=== PATIENT | female | born 1990 | race Caucasian/White ===

== ENCOUNTER 2016-05-11 12:47 | Emergency (ER) | payer MEDICAID ==
[~2016-05-11] VITALS: Ht 170.2 cm; Wt 80.0 kg
[~2016-05-11 12:47] MED LIST: AMOX500T PO; DOXY100T PO; MOBI15TA PO; PRED20 PO; TRAM50 PO; VALT500T PO; ZANT300T PO; ZYRT10CA PO
[2016-05-11 12:48] VITALS: BP 146/93; PULSE 118; RESP 12; TEMP 98.3; O2SAT 99
[2016-05-11 14:30] VITALS: O2SAT 99
[2016-05-11] MEDS ORDERED: methylPREDNISolone SOD SUCC 125 MG/2 ML VIAL IVP ONE (14:30)
[2016-05-11] MEDS ORDERED: diphenhydrAMINE HCL 50 MG/ML VIAL IVP ONE (14:30)
[2016-05-11] MEDS ORDERED: VALT1TAB PO (14:30)
[2016-05-11] MEDS ORDERED: FAMOTIDINE 20 MG/2 ML VIAL IV PUSH ONE (14:30)
[2016-05-11] MEDS ORDERED: SODIUM CHLORIDE 0.9% FLUSH 5 ML FLUSH IVF PRN (14:30)
--- NOTE | 2016-05-11 14:36 | PD ---
HPI Chief Complaint: Allergic/Adverse Reaction Time Seen by Provider: 14:32 Travel History International Travel<30 days: No Contact w/Intl Traveler<30days: No Traveled to known affect area: No History of Present Illness HPI 25-year-old female presents to the emergency department for evaluation of urticaria that started this morning. She reports that on her face, chest, back , neck. Patient states that she has been having intermittent urticaria area over the past 3 months. She was seen last week in the emergency department for the same and was given medications. She states that when she stopped her medications, symptoms restarted. She denies any new history of medications, detergents, lotions, foods. Patient took a Zyrtec at home with no improvement. No swelling of lips, tongue, throat. She does report some scratchiness to her throat. No difficulty breathing. No fevers or chills. No other complaints. Patient denies any chance of . PFSH Past Medical History Cancer: No Cardiovascular Problems: No Diabetes: No Endocrine: No Genitourinary: No Hepatitis: No Hiatal Hernia: No Immune Disorder: No Medical other: Yes Musculoskeletal: No Neurologic: No Reproductive: Yes (endometriosis) Respiratory: No Immunizations Current: No Thyroid Disease: No ?: Not : 3 Para: 2 Miscarriage: 1 Tubal Ligation: Yes (2016) Past Surgical History AICD: No Joint Replacement: No Pacemaker: No Social History Alcohol Use: Yes (on occasion) Tobacco Use: Yes (4-5 cigs a week) Substance Use: No Allergies-Medications (Allergen,Severity, Reaction): Coded Allergies: No Known Allergies (Unverified , 02/08/16) Reported Meds & Prescriptions Reported Meds & Active Scripts Active Zantac (Ranitidine HCl) 150 Mg Tab 150 Mg PO BID 5 Days Prednisone 20 Mg Tab 40 Mg PO DAILY 4 Days Reported Valtrex (Valacyclovir HCl) 1 Gm Tab 1,000 Mg PO DAILY Review of Systems Except as stated in HPI: all other systems reviewed are Neg Physical Exam Narrative GENERAL: Well-developed well-nourished female patient, ambulatory. Afebrile. SKIN: Warm and dry. Patient has urticaria noted to the face, neck, trunk. HEAD: Normocephalic. Atraumatic. ENT: Mucosa pink and moist. No erythema or exudates. No uvular edema. No uvular , palatal, or tonsillar deviation. Airway patent. Nasal turbinates appear normal without nasal blood, purulent drainage or septal hematoma. Bilateral tympanic membranes are clear without erythema or perforation. EYES: No scleral icterus. No injection or drainage. NECK: Supple, trachea midline. No JVD or lymphadenopathy. CARDIOVASCULAR: Regular rate and rhythm without murmurs, gallops, or rubs. RESPIRATORY: Breath sounds equal bilaterally. No accessory muscle use. Lungs sounds are clear to auscultation. GASTROINTESTINAL: Abdomen soft, non-tender, nondistended. MUSCULOSKELETAL: No cyanosis, or edema. BACK: Nontender without obvious deformity. No CVA tenderness. Data Data Last Documented VS Vital Signs Date Time Temp Pulse Resp B/P Pulse Ox O2 Delivery O2 Flow Rate FiO2 05/11/16 14:30 99 Room Air 05/11/16 12:48 98.3 118 12 146/93 Orders Ecg Monitoring (05/11/16 14:29) Iv Access Insert/Monitor (05/11/16 14:29) Oximetry (05/11/16 14:29) Diphenhydramine Inj (Benadryl Inj) (05/11/16 14:30) Methylprednisolone So Succ Inj (Solumedr (05/11/16 14:30) Famotidine Inj (Pepcid Inj) (05/11/16 14:30) Sodium Chloride 0.9% Flush (Ns Flush) (05/11/16 14:30) MDM Medical Decision Making Medical Screen Exam Complete: Yes Emergency Medical Condition: Yes Medical Record Reviewed: Yes Differential Diagnosis Urticaria versus allergic reaction versus anaphylaxis Narrative Course 25-year-old female presents to the emergency department for evaluation of hives since this morning. She has history of the same over the past 3 months. No evidence of anaphylaxis on exam. IV access established. Patient was given Benadryl 50 mg IV, Solu-Medrol 125 mg IV, famotidine 20 mg IV. Upon reevaluation, the patient states she is feeling much better. She states itchiness and throat is completely resolved. Rash is improving. Patient is stable for discharge. She'll be discharged with a prescription for prednisone and Zantac. 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 The patient is agreeable to this plan. She is to return for any acute worsening of symptoms. Diagnosis Primary Impression: Allergic dermatitis Referrals: Primary Care Physician call for appointment Patient Instructions: General Instructions, Urticaria (ED) Additional Instructions: Take prednisone as directed. Start this tomorrow. Take Zantac as directed. Take Benadryl [id number] every 6-8 hours as needed. Follow up with your primary care physician or roofer [employer]. Return to the emergency department for any acute worsening symptoms. Med/Other Pt SpecificInfo: Prescription(s) given Scripts Ranitidine (Zantac)150 Mg [id number] Mg PO BID 5 Days Ref 0 Prov:Edna Palafox 05/11/16 Prednisone 20 Mg Tab40 Mg PO DAILY 4 Days Ref 0 Prov:Edna Palafox 05/11/16 Disposition: 01 DISCHARGE HOME Condition: Stable Edna Palafox May 11, 2016 14:36
[2016-05-11] MEDS ORDERED: ZANT150T2 PO (16:02)
[2016-05-11] MEDS ORDERED: PRED20 PO (16:02)
[2016-05-11 16:47] VITALS: BP 130/65
== END 2016-05-11 16:48 | disposition home or self-care (01) ==
LOC: NEPC 12:47
DX: L23.9 Allergic contact dermatitis, unspecified cause (principal)
CPT/HCPCS: 96374; 96375; 99283; J1200; J2930